=== PATIENT | female | born 1995 | race Caucasian/White ===

== ENCOUNTER 2018-11-13 10:55 | Inpatient (IN) | payer MEDICAID ==
[2018-11-13] MEDS ORDERED: MISOPROSTOL 200 MCG TAB PR PRN (11:13)
[2018-11-13] MEDS ORDERED: LR 1,000 ML IV PRN (11:13)
[2018-11-13] MEDS ORDERED: IBUPROFEN 600 MG TAB PO PRN ×2 (11:13→19:51)
[2018-11-13] MEDS ORDERED: EPSOM SALT 454 GM TP PRN (11:13)
[2018-11-13] MEDS ORDERED: OLIVE OIL 118 ML BTL MISC PRN (11:13)
[2018-11-13] MEDS ORDERED: LIDOCAINE 1% 300 MG/30 ML SDV SC PRN (11:13)
[2018-11-13] MEDS ORDERED: OXYTOCIN/RINGERS LACTATE 1,000 ML IV PRN (11:13)
[2018-11-13] MEDS: MISOPROSTOL 50 MCG CAP PO SCH ×2 (12:48→22:16)
--- NOTE | 2018-11-13 12:57 | PDGENHP ---
History and Physical History and Physical: Care: [facility] HPI: Patient is a 23 yo G 2 P 0 @ 40.5 weeks that presents to L&D with BLAKE of 4cm in office today. She denies contractions, but suspected LOF for past couple of days. She had a reactive NST in office today. EDC: 11/08/18 which is based on LMP: 01/19/18 which is estimated and not consistent with Ultrasound at 7 weeks. 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 Review of Systems: Constitutional: Denies any fever, chills, or fatigue HEENT: denies any visual changes, difficulty swallowing, hearing loss Cardiovascular: Denies any chest pain, palpitations, leg swelling Respiratory: denies any cough, wheezing, or shortness of breathe GI: Denies any nausea, vomiting, diarrhea, constipation : denies any dysuria, urgency, frequency, vaginal bleeding Musculoskeletal: denies any muscle or bone pain Skin: denies any rashes Neuro: denies any headache, seizures, lightheadedness, dizziness, or loss of consciousness Psychiatric: denies any depression, anxiety, or SI/HI thoughts HISTORY: Previous OB history: nullip, blighted ovum Past medical history: frequent vaginal infections Past surgical history: denies Social: Denies any alcohol, tobacco, or drug use. Family history: Not relevant Medications: PNV Allergies (list reaction): NKDA LABS: Rh: B+ ABS: Neg Rubella: Immune HbsAg: NR HIV: NR VDRL: NR 1hr: 109 GC: Neg Chlamydia: Neg Pap: Normal GBS: neg BMI: (prepreg) 16.5 PHYSICAL EXAM: Constitutional: WN, A&Ox3 HEENT: normocephalic atraumatic, supple Skin: Warm, dry, intact Heart: RRR, no murmur Chest: CTA-B Abdomen: Soft, nontender, gravid SVE: /-1 Extremities: no edema, negative homans sign Neuro: grossly normal Psych: normal affect assessment: FHT baseline 120, +accels, no decels, moderate variability Contractions: toco q 5-7 min, palpate mild Assessment: 1) 23 yo G 2 P 0 with IUP@ 40 w 5 d 2) no labor 3) GBS neg 4) Cat 1 FHR tracing 5) oligohydramnios Plan: 1) Admit to L&D 2) cytotec for cervical ripening 3) anticipate Today's visit was approximately 30 min, of which >50% of visit 20 min, was spent face to face with pt on direct counseling/coordination of care.
[2018-11-13] MEDS ORDERED: TERBUTALINE SULFATE 1 MG/ML VIAL ONE (13:08)
[2018-11-13] MEDS ORDERED: OXYTOCIN 10 UNIT/ML VIAL ONE (13:08)
[2018-11-13 14:24] LABS: PLATELET COUNT 242 10^3/uL (150-400)
[2018-11-13] MEDS ORDERED: ONDANSETRON 4 MG/2 ML VIAL IVP PRN ×2 (15:32→16:00)
--- NOTE | 2018-11-13 16:38 | OBPROG ---
Labor Progress Note Assessment/Plan: Assessment: 1) Early labor 2) 3cm/80/-2 Plan: 1) hydrotherapy for labor at this time 2) pt has been using nitrous intermittently 3) FAMILIA as desired 11/13/18 16:31 Objective: 11/13/18 11:15 Patient ABO/Rh B POSITIVE 11/13/18 11:15 VSS, labs reviewed - SVE Dilation (cm): 3 Effacement (%): 80 Station: -2 Membranes: Intact - Contraction Pattern Assessment Current Contraction Pattern: Regular (q 3min) - FHR Assessment Shetes FHR (bpm): 140 FHR Pattern Variability: Moderate FHR Category: 1 Oxytocin Orders Assessment - Pre-Induction/Augmentation Assessment Gestational Age: 40 week(s) and 5 day(s) ICD10 Worksheet Patient Problems: Problems Problem Status Onset EARLY LABOUR Acute Oligohydramnios in sheets in third trimester Acute Postmaturity , 40-42 weeks gestation Acute
[2018-11-13] MEDS ORDERED: fentaNYL 100 MCG/2 ML INJ IVP PRN (17:40)
--- NOTE | 2018-11-13 18:32 | OBPROG ---
Labor Progress Note Assessment/Plan: Assessment: 1) Early labor 2) 3cm/80/-2 Plan: 1) hydrotherapy for labor at this time 2) pt has been using nitrous intermittently 3) FAMILIA as desired 11/13/18 16:31 Subjective/Intrapartum Course: 11/13/18 18:31 VSS Objective: 11/13/18 11:15 Patient ABO/Rh B POSITIVE 11/13/18 11:15 - SVE Dilation (cm): 5 Effacement (%): 90 Station: 0 Membranes: SROM Amniotic Fluid Color: Clear - Contraction Pattern Assessment Current Contraction Pattern: Regular (q 3min) - FHR Assessment Sheets FHR (bpm): 120 (decel to 90 bpm x 3 minutes, O2 applied and bolus given) FHR Pattern Variability: Moderate FHR Category: 2 Oxytocin Orders Assessment - Pre-Induction/Augmentation Assessment Gestational Age: 40 week(s) and 5 day(s) ICD10 Worksheet Patient Problems: Problems Problem Status Onset EARLY LABOUR Acute Oligohydramnios in sheets in third trimester Acute Postmaturity , 40-42 weeks gestation Acute
--- NOTE | 2018-11-13 19:50 | OBDEL ---
Info Type: Vaginal Presentation at Delivery: Vertex L&D Analgesia/Anesthesia Type: IV Narcotics, Nitrous GBS+: No Intrapartum Medications: Discontinued Medications Generic Name Dose Route Start Last Admin Trade Name Mikeq PRN Reason Stop Dose Admin Fentanyl 50 mcg 11/13/18 17:40 11/13/18 17:55 Sublimaze IVP 11/23/18 17:39 50 mcg Q2HRS PRN Administration Pain, Severe Unable to Take PO Misoprostol 50 mcg 11/13/18 11:45 11/13/18 12:48 Cytotec PO 05/12/19 11:44 50 mcg Q4H SUSANNAH Administration Ondansetron HCl 8 mg 11/13/18 15:32 11/13/18 15:54 Zofran IVP 05/12/19 15:31 4 mg Q4H PRN Administration Nausea/Vomiting, Can't Take PO - Hospital Course Intrapartum: 11/13/18 18:31 VSS 11/13/18 19:48 Mom progressed well to complete after one dose IV pain medication. Began pushing spontaneously. Indications for Delivery: SROM, Oligohydramnios Vaginal Delivery - Delivery Provider Delivery Physician/CNM: Janell Arguello - Labor and Delivery Onset of Contractions Date: 11/13/18 Onset of Contractions Time: 15:00 Onset of Contractions Type: Induced Rupture of Membranes Date: 11/13/18 Rupture of Membranes Time: 18:13 Rupture of Membranes Type: Spontaneous Amniotic Fluid Color: Clear Dilation Complete Date: 11/13/18 Dilation Complete Time: 19:06 Placenta Delivery Date: 11/13/18 Placenta Delivery Time: 19:38 Total Hours of Labor: 4 Laceration: 1st Degree (no repair) Vaginal Sponge Count Correct: Yes Vaginal Needle Count Correct: Yes Vaginal Sweep Performed: Yes Delivery Events: Nuchal Cord, Other (Specify) (hand by face) - Medications Labor Augmentation/Induction Methods Used: Misoprostol (one dose cytotec) Labor Augmentation/Induction Indication: Post Dates (oligo) [place] Data DARIEL: 11/08/18 Gestational Age: 40 week(s) and 5 day(s) Sheets Delivery Date: 11/13/18 Delivery Time: 19:28 Sex of Infant: Male Score (1 Min): 7 Score (5 Min): 9 ICD10 Worksheet Patient Problems: Problems Problem Status Onset EARLY LABOUR Acute (normal spontaneous vaginal delivery) Acute Oligohydramnios in sheets in third trimester Acute Postmaturity , 40-42 weeks gestation Acute - ICD10 Problem Qualifiers (2) (normal spontaneous vaginal delivery)
[2018-11-13] MEDS ORDERED: DOCUSATE SODIUM 100 MG CAP PO PRN (19:51)
[2018-11-13] MEDS ORDERED: ACETAMINOPHEN 325 MG TAB PO PRN (19:51)
--- NOTE | 2018-11-14 10:47 | OBPP ---
Progress Note Assessment/Plan: Assessment: 1) normal pP progress 2) Breast feeding difficulty Plan: 1) Plan d/c home tomorrow 2) support 11/14/18 10:48 Subjective/ Course: 11/14/18 10:47 First PP day, breast feeding difficulty. Objective: 11/13/18 11:15 Patient ABO/Rh B POSITIVE 11/13/18 11:15 Temp Pulse Resp BP Pulse Ox 36.3 C 98 17 113/71 97 11/14/18 09:00 11/14/18 09:00 11/14/18 09:00 11/14/18 09:00 11/14/18 09:00 VSS Uterine Position/Fundal Height: At Umbilicus Uterine Tone: Firm
[2018-11-15 08:33] VITALS: BP 115/74
--- NOTE | 2018-11-15 12:54 | OBGCSDC ---
General Delivery Information - General Info : 3 Para: 1 Abortions: 2 Type: Vaginal L&D Analgesia/Anesthesia Type: IV Narcotics, Nitrous Admission Date: 11/13/18 Labs: Patient ABO/Rh B POSITIVE 11/13/18 11:15 Hct 37.8 % (38.0-47.0) L 11/13/18 11:15 - Hospital Course Intrapartum: 11/13/18 18:31 VSS 11/13/18 19:48 Mom progressed well to complete after one dose IV pain medication. Began pushing spontaneously. : 11/14/18 10:47 First PP day, breast feeding difficulty. 11/15/18 12:53 Breast feeding with minimal assistance, voiding without difficulty, denies pain or heavy bleeding. Vaginal - Delivery Provider Delivery Physician/CNM: Janell Arguello - Diagnosis Labor: Induced Rupture of Membranes Type: Spontaneous Amniotic Fluid Color: Clear Laceration: 1st Degree (no repair) Delivery Events: Nuchal Cord, Other (Specify) (hand by face) [place] Data DARIEL: 11/08/18 Gestational Age: 41 week(s) and 0 day(s) Sheets Delivery Date: 11/13/18 Delivery Time: 19:28 Sex of Infant: Male [place] Weight (gm): 3060 g Score (1 Min): 7 Score (5 Min): 9 Discharge Information - Discharge Information Instruction/Follow Up: Two Weeks, Four Weeks, Six Weeks
== END 2018-11-15 16:50 | disposition home or self-care (01) | DRG 560 ==
LOC: FLD 10:55 → FOB 21:36
PROVIDERS: ADMIT Advanced Practice Midwife; ATTEND Advanced Practice Midwife
PROC: 10E0XZZ Delivery of Products of Conception, External Approach (ICD-10-PCS; principal; 2018-11-13)
DX: O41.03X0 Oligohydramnios, third trimester, not applicable or unspecified (principal); O48.0 Post-term pregnancy; Z37.0 Single live birth; Z3A.40 40 weeks gestation of pregnancy; O70.0 First degree perineal laceration during delivery; O69.82X0 Labor and delivery complicated by other cord entanglement, without compression, not applicable or unspecified
CPT/HCPCS: J2405; J2590; J3010; J3105